=== PATIENT | female | born 1990 | race Two or more races ===

== ENCOUNTER 2020-10-16 04:18 | Inpatient (IN) | payer OTHER ==
[2020-10-15 08:49] VITALS: BMI 31.1
[2020-10-16] MEDS ORDERED: PROPOFOL 20 ML ONE ×2 (11:11→11:54)
[2020-10-16] MEDS ORDERED: ROCURONIUM BROMIDE 100 MG/10 ML VIAL ONE (11:13)
[2020-10-16] MEDS ORDERED: MIDAZOLAM HCL 2 MG/2 ML SINGLE DOSE VIAL ONE (11:13)
[2020-10-16] MEDS ORDERED: ceFAZolin SODIUM 1 GM VIAL IVPB ONE (11:45)
[2020-10-16] MEDS ORDERED: ONDANSETRON 4 MG/2 ML VIAL IVPUSH PRN ×2 (12:17→14:21)
[2020-10-16] MEDS ORDERED: HYDROmorphone HCl 2 MG/ML VIAL ONE (14:06)
[2020-10-16] MEDS ORDERED: ACETAMINOPHEN 325 MG TABLET (FP) PO PRN (14:21)
[2020-10-16] MEDS ORDERED: BISACODYL 5 MG TABLET.DR (FP) PO PRN (14:21)
[2020-10-16] MEDS ORDERED: DOCUSATE SODIUM 100 MG CAPSULE (FP) PO PRN (14:21)
[2020-10-16] MEDS ORDERED: SIMETHICONE 80 MG TAB.CHEW (FP) PO PRN (14:21)
[2020-10-16] MEDS ORDERED: oxyCODONE HCL 5 MG TABLET PO PRN (14:21)
[2020-10-16] MEDS ORDERED: BUTALBITAL PO PRN (14:25)
[2020-10-16] MEDS ORDERED: ASPIRIN PO PRN (14:25)
[2020-10-16] MEDS ORDERED: CAFFEINE PO PRN (14:25)
[2020-10-16] MEDS ORDERED: [UNRECOGNIZED DRUG - OTHER] PO PRN (14:25)
[2020-10-16] MEDS ORDERED: IBUPROFEN 800 MG/8 ML IJ IVPB ONE ×2 (16:24→16:45)
[2020-10-16] MEDS: LACTATED RINGERS SOLUTION 1,000 ML IV SCH (17:45)
[2020-10-16] MEDS ORDERED: CEFAZOLIN 1 GM/D5W 1 GM/50 ML BAG IVPB SCH (18:00)
[2020-10-16] MEDS: oxyCODONE HCL 5 MG TABLET PO PRN (19:37)
[2020-10-16] MEDS: LISINOPRIL 10 MG TABLET PO SCH (21:33)
[2020-10-16] MEDS: HYDROmorphone HCl 2 MG/ML VIAL IVPUSH PRN (22:59)
[2020-10-17] MEDS ORDERED: DEXTROSE 5%-WATER - 50 ML IVPB ONE ×2 (01:04→08:48)
[2020-10-17] MEDS ORDERED: ceFAZolin SODIUM 1 GM VIAL ONE ×2 (01:04→08:48)
[2020-10-17] MEDS: CEFAZOLIN 1 GM in DEXTROSE 5%-WATER - 50 ML IVPB SCH ×2 (01:20→09:13)
[2020-10-17] MEDS: oxyCODONE HCL 5 MG TABLET PO PRN ×3 (01:26→14:47)
[2020-10-17] MEDS: HYDROmorphone HCl 2 MG/ML VIAL IVPUSH PRN (03:55)
[2020-10-17] MEDS ORDERED: LEVOTHYROXINE NA 50 MCG TABLET (FP) PO SCH (07:00)
[2020-10-17 08:27] LABS: HEMATOCRIT 26.3 % (32.4-45.2); HEMOGLOBIN 9.3 GM/dL (10.7-15.3); MCH 32.8 pg (25.7-33.7); MCHC 35.2 g/dl (32.0-36.0); MEAN CELL VOLUME 93.2 fl (80-96); MEAN PLT VOLUME 8.2 fl (7.5-11.1); PLATELET COUNT 173 10^3/uL (134-434); RBC 2.83 M/mm3 (3.60-5.2); RDW 12.5 % (11.6-15.6); WHITE BLOOD COUNT 10.6 K/mm3 (4.0-10.0)
[2020-10-17 08:53] LABS: BLOOD UREA NITROGEN 9.4 mg/dL (7-18); CALCIUM 7.9 mg/dL (8.5-10.1)
[2020-10-17 08:57] LABS: CREATININE 0.4 mg/dL (0.55-1.3)
[2020-10-17] MEDS: LISINOPRIL 10 MG TABLET PO SCH (09:18)
[2020-10-17] MEDS: IBUPROFEN 800 MG/8 ML IJ IVPB PRN ×2 (09:37→16:25)
[2020-10-17] MEDS ORDERED: NORETHINDRONE ETHINYL ESTRAD PO SCH (10:00)
[2020-10-17 14:08] VITALS: BP 112/56; PULSE 99; TEMP 98.9
[2020-10-17] MEDS ORDERED: IBUPROFEN 600 MG TABLET (FP) PO PRN (14:21)
[2020-10-17] MEDS: LACTATED RINGERS SOLUTION 1,000 ML IV SCH (14:47)
[2020-10-17] MEDS ORDERED: ENOXAPARIN NA (PORCINE) 40 MG/0.4 ML DISP.SYRIN SQ SCH (15:30)
== END 2020-10-17 18:40 | disposition home or self-care (01) | DRG 519 ==
LOC: J2C 04:18 → J8W 16:46
PROVIDERS: ADMIT Family Medicine; ATTEND Family Medicine
PROC: 0UB90ZZ Excision of Uterus, Open Approach (ICD-10-PCS; principal; 2020-10-16 10:30)
DX: D25.9 Leiomyoma of uterus, unspecified (principal); N92.0 Excessive and frequent menstruation with regular cycle
CPT/HCPCS: 36415; 80048; 84703; 85027; 86850; 86900; 86901; 86922; 88305-TC; 94010; 94760